=== PATIENT | male | born 1975 | race Caucasian/White ===

== ENCOUNTER 2016-11-22 12:36 | Emergency (ER) | payer OTHER ==
[~2016-11-22 12:36] MED LIST: ALPRAZOLAM0.5 MG PO; JANUVIA100 MG PO; NEURONTIN 400400 MG PO
[2016-11-22 14:05] LABS: HEMOGLOBIN 15.6 gm/dl (14.0-17.5); RED BLOOD COUNT 4.99 M/UL (4.20-5.50); WHITE BLOOD COUNT 6.1 K/UL (4.5-11.0)
[2016-11-22 14:32] LABS: BUN/CREATININE RATIO 18 (0-10)
[2017-02-01] MEDS ORDERED: PERCOCET 10-321 EACH PO (15:53)
[2017-03-16] MEDS ORDERED: LIPITOR40 MG PO (15:56)
[2017-03-16] MEDS ORDERED: SYNTHROID25 MCG PO (15:56)
[2017-03-16] MEDS ORDERED: VITAMIN B-1000 MCG/M IM (15:57)
[2017-03-16] MEDS ORDERED: XARELTO15 MG PO (15:58)
[2017-03-16] MEDS ORDERED: MULTIVITAMINS1 EAC1 PO (15:59)
[2017-03-16] MEDS ORDERED: ASPIRIN EC81 MG PO (16:02)
[2017-03-16] MEDS ORDERED: IBUPROFEN400 MG PO (16:20)
[2017-04-16] MEDS ORDERED: LOVENOX SYR100 MG/ML SQ (23:05)
[2017-04-16] MEDS ORDERED: HYDROCODON-ACE1 EAC4 PO (23:07)
[2017-04-16] MEDS ORDERED: OMEPRAZOLE20 MG PO (23:38)
[2017-04-16] MEDS ORDERED: NAPROSYN EC 50500 MG PO (23:40)
[2017-04-21] MEDS ORDERED: LEVEMIR100 UNIT/1 SQ (09:34)
[2017-04-21] MEDS ORDERED: THIAMINE HCL100 MG PO (09:42)
[2017-04-21] MEDS ORDERED: FOLIC ACID 1 MG1 MG PO (09:44)
[2017-04-26] MEDS ORDERED: ASPIRIN CHEWABL81 MG PO (18:50)
== END 2016-11-22 17:49 | disposition home or self-care (01) ==
LOC: ER1 12:36
PROVIDERS: Student in an Organized Health Care Education/Training Program
DX: R07.9 Chest pain, unspecified (principal); R06.02 Shortness of breath; R12 Heartburn; R11.2 Nausea with vomiting, unspecified; E11.9 Type 2 diabetes mellitus without complications; Z87.891 Personal history of nicotine dependence; Z79.899 Other long term (current) drug therapy
CPT/HCPCS: 36415; 71020; 80053; 82550; 82553; 83874; 84484; 85025; 85379; 93005; 96361; 96374; 99285; J1885

== ENCOUNTER 2016-12-04 03:29 | Emergency (ER) | payer OTHER ==
[2016-12-04 04:16] LABS: HEMOGLOBIN 15.1 gm/dl (14.0-17.5); RED BLOOD COUNT 4.84 M/UL (4.20-5.50); WHITE BLOOD COUNT 12.1 K/UL (4.5-11.0)
[2016-12-04 04:37] LABS: BUN/CREATININE RATIO 13 (0-10)
[2017-02-01] MEDS ORDERED: PERCOCET 10-321 EACH PO (15:53)
[2017-03-16] MEDS ORDERED: SYNTHROID25 MCG PO (15:56)
[2017-03-16] MEDS ORDERED: LIPITOR40 MG PO (15:56)
[2017-03-16] MEDS ORDERED: VITAMIN B-1000 MCG/M IM (15:57)
[2017-03-16] MEDS ORDERED: XARELTO15 MG PO (15:58)
[2017-03-16] MEDS ORDERED: MULTIVITAMINS1 EAC1 PO (15:59)
[2017-03-16] MEDS ORDERED: ASPIRIN EC81 MG PO (16:02)
[2017-03-16] MEDS ORDERED: IBUPROFEN400 MG PO (16:20)
[2017-04-16] MEDS ORDERED: LOVENOX SYR100 MG/ML SQ (23:05)
[2017-04-16] MEDS ORDERED: HYDROCODON-ACE1 EAC4 PO (23:07)
[2017-04-16] MEDS ORDERED: OMEPRAZOLE20 MG PO (23:38)
[2017-04-16] MEDS ORDERED: NAPROSYN EC 50500 MG PO (23:40)
[2017-04-21] MEDS ORDERED: LEVEMIR100 UNIT/1 SQ (09:34)
[2017-04-21] MEDS ORDERED: THIAMINE HCL100 MG PO (09:42)
[2017-04-21] MEDS ORDERED: FOLIC ACID 1 MG1 MG PO (09:44)
[2017-04-26] MEDS ORDERED: ASPIRIN CHEWABL81 MG PO (18:50)
== END 2016-12-04 09:23 | disposition home or self-care (01) ==
LOC: ER1 03:29
PROVIDERS: Student in an Organized Health Care Education/Training Program
DX: F15.10 Other stimulant abuse, uncomplicated (principal); F12.10 Cannabis abuse, uncomplicated; F10.20 Alcohol dependence, uncomplicated; Y90.1 Blood alcohol level of 20-39 mg/100 ml; E11.9 Type 2 diabetes mellitus without complications; F17.210 Nicotine dependence, cigarettes, uncomplicated; Z79.84 Long term (current) use of oral hypoglycemic drugs
CPT/HCPCS: 36415; 71010; 80053; 80307; 81001; 82550; 82553; 83874; 84443; 84484; 85025; 87086; 93005; 96361; 96374; 96376; 99285; G0480; J2060; J7030

== ENCOUNTER 2016-12-16 21:39 | Emergency (ER) | payer OTHER ==
[2016-12-16 23:08] LABS: BUN/CREATININE RATIO 15 (0-10)
[2016-12-16 23:09] LABS: HEMOGLOBIN 15.7 gm/dl (14.0-17.5); RED BLOOD COUNT 5.05 M/UL (4.20-5.50); WHITE BLOOD COUNT 10.7 K/UL (4.5-11.0)
[2017-02-01] MEDS ORDERED: PERCOCET 10-321 EACH PO (15:53)
[2017-03-16] MEDS ORDERED: LIPITOR40 MG PO (15:56)
[2017-03-16] MEDS ORDERED: SYNTHROID25 MCG PO (15:56)
[2017-03-16] MEDS ORDERED: VITAMIN B-1000 MCG/M IM (15:57)
[2017-03-16] MEDS ORDERED: XARELTO15 MG PO (15:58)
[2017-03-16] MEDS ORDERED: MULTIVITAMINS1 EAC1 PO (15:59)
[2017-03-16] MEDS ORDERED: ASPIRIN EC81 MG PO (16:02)
[2017-03-16] MEDS ORDERED: IBUPROFEN400 MG PO (16:20)
[2017-04-16] MEDS ORDERED: LOVENOX SYR100 MG/ML SQ (23:05)
[2017-04-16] MEDS ORDERED: HYDROCODON-ACE1 EAC4 PO (23:07)
[2017-04-16] MEDS ORDERED: OMEPRAZOLE20 MG PO (23:38)
[2017-04-16] MEDS ORDERED: NAPROSYN EC 50500 MG PO (23:40)
[2017-04-21] MEDS ORDERED: LEVEMIR100 UNIT/1 SQ (09:34)
[2017-04-21] MEDS ORDERED: THIAMINE HCL100 MG PO (09:42)
[2017-04-21] MEDS ORDERED: FOLIC ACID 1 MG1 MG PO (09:44)
[2017-04-26] MEDS ORDERED: ASPIRIN CHEWABL81 MG PO (18:50)
== END 2016-12-17 06:05 | disposition home or self-care (01) ==
LOC: ER1 21:39
PROVIDERS: Family Medicine
DX: F15.10 Other stimulant abuse, uncomplicated (principal); F10.10 Alcohol abuse, uncomplicated; Y90.0 Blood alcohol level of less than 20 mg/100 ml; E11.65 Type 2 diabetes mellitus with hyperglycemia; R07.9 Chest pain, unspecified; Z79.84 Long term (current) use of oral hypoglycemic drugs
CPT/HCPCS: 36415; 36600; 71010; 80053; 80307; 81001; 82550; 82553; 82803; 83874; 84484; 85025; 93005; 99284; G0480; J2060

== ENCOUNTER 2017-01-15 16:31 | Inpatient (IN) | payer OTHER ==
[~2017-01-15] VITALS: Ht 170.2 cm; Wt 97.7 kg
[2017-01-15 17:10] LABS: HEMOGLOBIN 13.1 gm/dl (14.0-17.5); RED BLOOD COUNT 4.15 M/UL (4.20-5.50); WHITE BLOOD COUNT 5.8 K/UL (4.5-11.0)
[2017-01-15 17:26] LABS: BUN/CREATININE RATIO 17 (0-10)
[2017-01-19] MEDS ORDERED: GLUCOPHAGE1000 MG PO (11:31)
[2017-01-19] MEDS ORDERED: NORCO 7.5-3251 EACH PO (11:32)
[2017-02-01] MEDS ORDERED: PERCOCET 10-321 EACH PO (15:53)
[2017-03-16] MEDS ORDERED: LIPITOR40 MG PO (15:56)
[2017-03-16] MEDS ORDERED: SYNTHROID25 MCG PO (15:56)
[2017-03-16] MEDS ORDERED: VITAMIN B-1000 MCG/M IM (15:57)
[2017-03-16] MEDS ORDERED: XARELTO15 MG PO (15:58)
[2017-03-16] MEDS ORDERED: MULTIVITAMINS1 EAC1 PO (15:59)
[2017-03-16] MEDS ORDERED: ASPIRIN EC81 MG PO (16:02)
[2017-03-16] MEDS ORDERED: IBUPROFEN400 MG PO (16:20)
[2017-04-16] MEDS ORDERED: LOVENOX SYR100 MG/ML SQ (23:05)
[2017-04-16] MEDS ORDERED: HYDROCODON-ACE1 EAC4 PO (23:07)
[2017-04-16] MEDS ORDERED: OMEPRAZOLE20 MG PO (23:38)
[2017-04-16] MEDS ORDERED: NAPROSYN EC 50500 MG PO (23:40)
[2017-04-21] MEDS ORDERED: LEVEMIR100 UNIT/1 SQ (09:34)
[2017-04-21] MEDS ORDERED: THIAMINE HCL100 MG PO (09:42)
[2017-04-21] MEDS ORDERED: FOLIC ACID 1 MG1 MG PO (09:44)
[2017-04-26] MEDS ORDERED: ASPIRIN CHEWABL81 MG PO (18:50)
== END 2017-01-19 12:13 | disposition home or self-care (01) | DRG 493 ==
LOC: ER1 16:31 → M/S 18:31 → ZEROF 18:31 → M/S 21:14
PROVIDERS: Orthopaedic Surgery; Physician Assistant; ADMIT Hospitalist
PROC: 0QSK35Z Reposition Left Fibula with External Fixation Device, Percutaneous Approach (ICD-10-PCS; 2017-01-16)
PROC: 0QSH35Z Reposition Left Tibia with External Fixation Device, Percutaneous Approach (ICD-10-PCS; principal; 2017-01-16 09:00)
DX: S82.852A Displaced trimalleolar fracture of left lower leg, initial encounter for closed fracture (principal); F10.180 Alcohol abuse with alcohol-induced anxiety disorder; W01.0XXA Fall on same level from slipping, tripping and stumbling without subsequent striking against object, initial encounter; Y92.015 Private garage of single-family (private) house as the place of occurrence of the external cause; F10.129 Alcohol abuse with intoxication, unspecified; F12.90 Cannabis use, unspecified, uncomplicated; E11.42 Type 2 diabetes mellitus with diabetic polyneuropathy; G47.00 Insomnia, unspecified; F17.210 Nicotine dependence, cigarettes, uncomplicated; Z79.84 Long term (current) use of oral hypoglycemic drugs; Z79.899 Other long term (current) drug therapy
CPT/HCPCS: 27840; 36415; 73502; 73560; 73590; 73610; 73630; 76000; 80053; 82550; 82553; 82962; 83036; 83874; 84484; 85025; 85610; 85730; 90471; 93005; 94640; 94664; 96374; 96375; 96376; 97110; 97116; 97530; 97535; 99284; C1713; J0690; J1650; J2060; J2250; J2270; J2405; J3010; J7030; J7050; J7120

== ENCOUNTER 2017-01-23 16:15 | Emergency (ER) | payer OTHER ==
[~2017-01-23 16:15] MED LIST changes: +GLUCOPHAGE1000 MG PO; +NORCO 7.5-3251 EACH PO
[2017-02-01] MEDS ORDERED: PERCOCET 10-321 EACH PO (15:53)
[2017-03-16] MEDS ORDERED: LIPITOR40 MG PO (15:56)
[2017-03-16] MEDS ORDERED: SYNTHROID25 MCG PO (15:56)
[2017-03-16] MEDS ORDERED: VITAMIN B-1000 MCG/M IM (15:57)
[2017-03-16] MEDS ORDERED: XARELTO15 MG PO (15:58)
[2017-03-16] MEDS ORDERED: MULTIVITAMINS1 EAC1 PO (15:59)
[2017-03-16] MEDS ORDERED: ASPIRIN EC81 MG PO (16:02)
[2017-03-16] MEDS ORDERED: IBUPROFEN400 MG PO (16:20)
[2017-04-16] MEDS ORDERED: LOVENOX SYR100 MG/ML SQ (23:05)
[2017-04-16] MEDS ORDERED: HYDROCODON-ACE1 EAC4 PO (23:07)
[2017-04-16] MEDS ORDERED: OMEPRAZOLE20 MG PO (23:38)
[2017-04-16] MEDS ORDERED: NAPROSYN EC 50500 MG PO (23:40)
[2017-04-21] MEDS ORDERED: LEVEMIR100 UNIT/1 SQ (09:34)
[2017-04-21] MEDS ORDERED: THIAMINE HCL100 MG PO (09:42)
[2017-04-21] MEDS ORDERED: FOLIC ACID 1 MG1 MG PO (09:44)
[2017-04-26] MEDS ORDERED: ASPIRIN CHEWABL81 MG PO (18:50)
== END 2017-01-23 18:25 | disposition home or self-care (01) ==
LOC: ER1 16:15
DX: G89.18 Other acute postprocedural pain (principal); E11.9 Type 2 diabetes mellitus without complications
CPT/HCPCS: 96372; 99283; J2270

== ENCOUNTER → 2017-01-31 | Outpatient (CLI) | payer OTHER ==
[~2017-01-31] MED LIST changes: +ASPIRIN CHEWABL81 MG PO; +ASPIRIN EC81 MG PO; +FOLIC ACID 1 MG1 MG PO; +HYDROCODON-ACE1 EAC4 PO; +IBUPROFEN400 MG PO; +LEVEMIR100 UNIT/1 SQ; +LIPITOR40 MG PO; +LOVENOX SYR100 MG/ML SQ; +MULTIVITAMINS1 EAC1 PO; +NAPROSYN EC 50500 MG PO; +OMEPRAZOLE20 MG PO; +PERCOCET 10-321 EACH PO; +SYNTHROID25 MCG PO; +THIAMINE HCL100 MG PO; +VITAMIN B-1000 MCG/M IM; +XARELTO15 MG PO
[2017-01-31 11:19] LABS: HEMOGLOBIN 11.9 gm/dl (14.0-17.5); RED BLOOD COUNT 3.86 M/UL (4.20-5.50); WHITE BLOOD COUNT 5.7 K/UL (4.5-11.0)
[2017-01-31 11:28] LABS: BUN/CREATININE RATIO 20 (0-10)
== END ==
LOC: OPSV2 10:30
PROVIDERS: Orthopaedic Surgery
DX: S82.302A Unspecified fracture of lower end of left tibia, initial encounter for closed fracture (principal); S82.832A Other fracture of upper and lower end of left fibula, initial encounter for closed fracture
CPT/HCPCS: 36415; 80048; 85027

== ENCOUNTER → 2017-02-01 | Day surgery (SDC) | payer OTHER ==
[~2017-02-01] VITALS: Ht 170.2 cm; Wt 93.9 kg
== END | disposition home or self-care (01) ==
LOC: OR 08:53
PROVIDERS: Orthopaedic Surgery
PROC: 0QSH04Z Reposition Left Tibia with Internal Fixation Device, Open Approach (ICD-10-PCS; 2017-02-01)
PROC: 0SPGX5Z Removal of External Fixation Device from Left Ankle Joint, External Approach (ICD-10-PCS; 2017-02-01)
PROC: 0QSK04Z Reposition Left Fibula with Internal Fixation Device, Open Approach (ICD-10-PCS; principal; 2017-02-01 13:45)
PROC: 0QSK04Z Reposition Left Fibula with Internal Fixation Device, Open Approach (ICD-10-PCS; 2017-02-01 13:45)
DX: S82.842A Displaced bimalleolar fracture of left lower leg, initial encounter for closed fracture (principal); K21.9 Gastro-esophageal reflux disease without esophagitis; E11.9 Type 2 diabetes mellitus without complications; Z82.49 Family history of ischemic heart disease and other diseases of the circulatory system; Z79.1 Long term (current) use of non-steroidal anti-inflammatories (NSAID); Z79.84 Long term (current) use of oral hypoglycemic drugs; Z79.891 Long term (current) use of opiate analgesic; Z79.899 Other long term (current) drug therapy; Z98.890 Other specified postprocedural states
CPT/HCPCS: 73610; 76000; 82962; C1713; J0690; J1885; J2250; J2795; J3010; J7030; J7120

== ENCOUNTER 2021-02-03 07:25 | Emergency (ER) | payer OTHER ==
[~2021-02-03 07:25] MED LIST changes: +DIABETA 5 MG TAB5 MG PO; +FLOMAX0.4 MG PO; +IBUPROFEN600 MG PO; +MORPHINE SULFAT15 M1 PO; +SEROQUEL400 MG PO; +ZOFRAN ODT 4 MG4 MG PO
[2021-02-03 08:07] LABS: HEMOGLOBIN 17.7 gm/dl (14.0-17.5); RED BLOOD COUNT 6.05 M/UL (4.20-5.50); WHITE BLOOD COUNT 26.9 K/UL (4.5-11.0)
[2021-02-03 08:35] LABS: BUN/CREATININE RATIO 16 (0-10)
[2021-02-03 11:22] LABS: BUN/CREATININE RATIO 20 (0-10)
[2021-02-03 12:28] LABS: HEMOGLOBIN 16.7 gm/dl (14.0-17.5); WHITE BLOOD COUNT 20.8 K/UL (4.5-11.0)
[2021-02-03 12:34] LABS: RED BLOOD COUNT 5.31 M/UL (4.20-5.50)
[2021-02-03 15:41] LABS: HEMOGLOBIN 15.5 gm/dl (14.0-17.5); RED BLOOD COUNT 5.03 M/UL (4.20-5.50)
[2021-02-03 15:50] LABS: BUN/CREATININE RATIO 24 (0-10)
[2021-02-03 16:49] LABS: BUN/CREATININE RATIO 25 (0-10)
== END 2021-02-03 17:45 | disposition short-term general hospital (02) ==
LOC: ER1 07:25
PROVIDERS: Emergency Medicine
DX: K92.2 Gastrointestinal hemorrhage, unspecified (principal); F10.231 Alcohol dependence with withdrawal delirium; Y90.9 Presence of alcohol in blood, level not specified; E72.51 Non-ketotic hyperglycinemia; Z20.822 Contact with and (suspected) exposure to COVID-19
CPT/HCPCS: 0240U; 31500; 36600; 51702; 71045; 80048; 80053; 81001; 82009; 82550; 82553; 82803; 82962; 83605; 84484; 85025; 85610; 85730; 86850; 86900; 86901; 93005; 94002; 96365; 96367; 96375; 96376; 99285; C9113; J0330; J2060; J2250; J2354; J2405; J2550; J3360; J3480; J7030; J7120; Q9967

== ENCOUNTER → 2021-06-10 | Outpatient (CLI) | payer OTHER | LOC: KOH-I 10:44 | DX: M79.662 Pain in left lower leg (principal); R59.9 Enlarged lymph nodes, unspecified | CPT/HCPCS: 93971 ==

== ENCOUNTER 2021-07-24 18:08 | Emergency (ER) | payer OTHER ==
[2021-07-24] MEDS ORDERED: IBUPROFEN600 MG PO (19:54)
[2021-07-24] MEDS ORDERED: ANTIBIOTIC28.4 GM TP (19:54)
[2021-07-24] MEDS ORDERED: CLEOCIN HCL300 MG PO (19:54)
== END 2021-07-24 20:29 | disposition home or self-care (01) ==
LOC: ER1 18:08
DX: H01.9 Unspecified inflammation of eyelid (principal); F17.210 Nicotine dependence, cigarettes, uncomplicated; E11.9 Type 2 diabetes mellitus without complications; Z79.84 Long term (current) use of oral hypoglycemic drugs
CPT/HCPCS: 99282

== ENCOUNTER 2021-09-29 01:08 | Emergency (ER) | payer OTHER ==
[~2021-09-29 01:08] MED LIST changes: +ANTIBIOTIC28.4 GM TP; +CLEOCIN HCL300 MG PO
[2021-09-29 01:43] LABS: HEMOGLOBIN 18.1 gm/dl (14.0-17.5); RED BLOOD COUNT 5.77 M/UL (4.20-5.50); WHITE BLOOD COUNT 12.1 K/UL (4.5-11.0)
[2021-09-29 02:06] LABS: BUN/CREATININE RATIO 26 (0-10)
== END 2021-09-29 06:08 | disposition home or self-care (01) ==
LOC: ER1 01:08
PROVIDERS: Family Medicine
DX: I47.1 Supraventricular tachycardia (principal); F15.90 Other stimulant use, unspecified, uncomplicated; E11.9 Type 2 diabetes mellitus without complications; F17.210 Nicotine dependence, cigarettes, uncomplicated
CPT/HCPCS: 80053; 80307; 82550; 82553; 83874; 84484; 85025; 93005; 96365; 96366; 96375; 99285; J2060; J2270; J2405

== ENCOUNTER 2022-02-28 22:34 | Emergency (ER) | payer OTHER ==
[2022-02-28 23:31] LABS: HEMOGLOBIN 18.5 gm/dl (14.0-17.5); RED BLOOD COUNT 5.89 M/UL (4.20-5.50); WHITE BLOOD COUNT 7.6 K/UL (4.5-11.0)
[2022-03-01 00:02] LABS: BUN/CREATININE RATIO 31 (0-10)
== END 2022-03-01 03:45 | disposition home or self-care (01) ==
LOC: ER1 22:34
PROVIDERS: Family Medicine
DX: R07.9 Chest pain, unspecified (principal); I10 Essential (primary) hypertension; R51.9 Headache, unspecified; E11.65 Type 2 diabetes mellitus with hyperglycemia; F17.200 Nicotine dependence, unspecified, uncomplicated; Z79.4 Long term (current) use of insulin
CPT/HCPCS: 70450; 71045; 80053; 82550; 82553; 84484; 85025; 93005; 96374; 96375; 99285; J0780; J1200

== ENCOUNTER 2022-04-22 13:08 | Emergency (ER) | payer OTHER ==
[2022-04-22 16:10] LABS: HEMOGLOBIN 19.3 gm/dl (14.0-17.5); RED BLOOD COUNT 6.21 M/UL (4.20-5.50); WHITE BLOOD COUNT 8.7 K/UL (4.5-11.0)
[2022-04-22 16:36] LABS: BUN/CREATININE RATIO 9 (0-10)
== END 2022-04-22 15:45 | disposition left against medical advice (07) ==
LOC: ER1 13:08
PROVIDERS: Emergency Medicine
DX: F10.129 Alcohol abuse with intoxication, unspecified (principal); F17.210 Nicotine dependence, cigarettes, uncomplicated
CPT/HCPCS: 36600; 70450; 71045; 80053; 80307; 81001; 82009; 82550; 82553; 82803; 83605; 83735; 83880; 84484; 85025; 87040; 93005; 96374; 99281; G0480; J2405

== ENCOUNTER 2022-04-22 21:46 | Emergency (ER) | payer OTHER ==
[2022-04-22 22:20] LABS: HEMOGLOBIN 18.1 gm/dl (14.0-17.5); RED BLOOD COUNT 5.84 M/UL (4.20-5.50)
[2022-04-22 22:53] LABS: BUN/CREATININE RATIO 9 (0-10)
== END 2022-04-23 08:26 | disposition left against medical advice (07) ==
LOC: ER1 21:46
PROVIDERS: Emergency Medicine
DX: F10.129 Alcohol abuse with intoxication, unspecified (principal); K92.0 Hematemesis; R73.9 Hyperglycemia, unspecified; R00.0 Tachycardia, unspecified; R10.816 Epigastric abdominal tenderness; R60.0 Localized edema; Z20.822 Contact with and (suspected) exposure to COVID-19; Z51.81 Encounter for therapeutic drug level monitoring
CPT/HCPCS: 36600; 71045; 80053; 81001; 82272; 82803; 82962; 83605; 83690; 83735; 83880; 84439; 84443; 84484; 85025; 85610; 85730; 86140; 96374; 96375; 96376; 99283; C9113; G0480; J2270; J2405; J3360; J3411; U0002